=== PATIENT | male | born 1960 | race Hispanic/Latino ===

== ENCOUNTER 2019-08-27 23:27 | Inpatient (IN) | payer SELFPAY ==
[2019-08-28 00:04] VITALS: BMI 27.4
[2019-08-28] MEDS ORDERED: Ondansetron PF 4 MG/2 ML Vial IVP PRN (00:37)
[2019-08-28] MEDS ORDERED: hydrALAZINE 20 MG/ML VIAL SLOW IVP PRN (00:37)
[2019-08-28] MEDS ORDERED: Promethazine HCl 12.5 MG in Sodium Chloride 0.9% 50 ML IVPB PRN (00:37)
[2019-08-28] MEDS ORDERED: Morphine 2 MG/ML SYRINGE SLOW IVP PRN ×2 (00:37→01:00)
[2019-08-28] MEDS ORDERED: cloNIDine 0.1 MG TAB PO PRN (00:37)
[2019-08-28] MEDS ORDERED: Bisacodyl 10 MG SUPP PR PRN (01:03)
[2019-08-28] MEDS ORDERED: Bisacodyl 5 MG TAB PO PRN (01:03)
[2019-08-28] MEDS ORDERED: Dextrose 5% in Water 1,000 ML IV PRN (01:03)
[2019-08-28] MEDS ORDERED: HYDROcodone/Acetaminophen 5/325 mg Tablet PO PRN (01:03)
[2019-08-28] MEDS ORDERED: Dextrose 50% Abboject 50 ML SYRINGE SLOW IVP PRN (01:03)
--- NOTE | 2019-08-28 01:06 | PDOC.HHP ---
Hospitalist HPI - History of Present Illness Chest pain History of Present Illness: Patient is a 58 year old male with PMH HTN, T2DM who presents as [place] transfer for chest pain, crushing substernal worse with exertion associated wth shortness of breath, began this AM and patinet tried to manage at home but could not and presented for evaluation. He had a similar pain about 10 days ago that did resolve on its own. In [place] ED, CTA without evidence of PE, EKG reported with nonsspecitic T wave changes. Vs wnl. got ASA, nitropaste, transferred to [facility]. Patient has history of DM on 95 units of insulin in AM, reports suboptimal control at home. takes losartan for BP. ED Course: VS 22:26 bp 130/82, pulse 75, rr 18, o2 99 RA, t 98.6 home meds insulin levemir 95u sq daily losartan 100mg po daily Hospitalist ROS - Review of Systems Constitutional: denies: fever, chills Eyes: denies: pain, vision change ENT: denies: mouth swelling, throat pain Respiratory: reports: shortness of breath. denies: cough Cardiovascular: reports: chest pain, light headedness. denies: palpitations Gastrointestinal: denies: nausea, vomiting Genitourinary: denies: dysuria, frequency Musculoskeletal: reports: arm pain (chest pain radiates to arm). denies: neck pain, shoulder pain Skin: denies: rash, lesions Neurological: denies: weakness, numbness All other systems reviewed; all pertinent +/- noted in HPI/Subj Hospitalist History - Past Medical History Other Medical History: htn, dm - Past Surgical History Other Surgical History: appendectomy - Family History Other Family History: dm in mother - Social History Smoking Status: Never smoker Alcohol: reports: Occassional Drugs: reports: none - Exam General Appearance: NAD, awake alert Eye: PERRL, anicteric sclera ENT: normocephalic atraumatic, no oropharyngeal lesions, moist mucosa Neck: supple, symmetric, no JVD, no thyromegaly, no lymphadenopathy, no carotid bruit Heart: RRR, no murmur, no gallops, no rubs, normal peripheral pulses Respiratory: CTAB, no wheezes, no rales, no ronchi, normal chest expansion, no tachypnea, normal percussion Gastrointestinal: soft, non-tender, non-distended, normal bowel sounds, no palpable masses, no hepatomegaly, no splenomegaly, no bruit Extremities: no cyanosis, no clubbing, no edema Skin: normal turgor, no lesions, no rashes Neurological: cranial nerve grossly intact, normal sensation to touch, no weakness, no focal deficits, no new deficit Musculoskeletal: normal tone, normal strength, no muscle wasting Psychiatric: normal affect, normal behavior, A&O x 3 Hospitalist Results - Labs Lab results: reviewed ED docs from [place] repeat labs pending repeat TnI 1.128 Hospitalist H&P A/P - Plan Plan: Patient is a 58 year old male with PMH HTN, T2DM who presents as [place] transfer for chest pain. # NSTEMI - admit to telemetry, consult transportation broker cardiology - continue lovenox, asa, add statin, beta shaista - trend troponin - repeat EKG # DM - NPO in case procedure needed - cover with sSI # HTN - PRNs in chart, continue nitropaste
[2019-08-28 01:15] LABS: Troponin I 1.128 ng/mL (< 0.028)
[2019-08-28] MEDS ORDERED: Enoxaparin Sodium 80 MG/0.8 ML SYRINGE SC SCH ×2 (01:30→09:00)
[2019-08-28] MEDS: Nitroglycerin 2% Ointment 1 INCH/1 GM Packet TOP SCH ×3 (01:32→18:48)
[2019-08-28 04:55] LABS: #Basophils 0.1 thou/uL (0.0-0.2); #Eosinphils 0.1 thou/uL (0.0-0.7); #Lymphocytes 0.9 thou/uL (1.20-3.40); #Neutrophils 4.9 thou/uL (1.40-6.50); %Basophils 0.9 % (0.0-1.0); %Eosinophils 1.1 % (0.0-10.0); %Lymphocytes 12.9 % (21.0-51.0); %Monocytes 14.8 % (0.0-10.0); %Neutrophils 70.3 % (42.0-75.0); Hemoglobin 15.1 g/dL (14.0-18.0); Mean Corpuscular HGB CONC 34.3 g/dL (32.0-36.0); Mean Corpuscular Hemoglobin 31.8 pg (27.0-31.0); Mean Corpuscular Volume 92.6 fL (78.0-98.0); Mean Platelet Volume 6.8 fL (7.4-10.4); Platelet Count 278 thou/uL (130-400); RBC Distribution Width 11.4 % (11.5-14.5); Red Blood Cell (RBC) Count 4.77 mill/uL (4.70-6.10); White Blood Cell (WBC) Count 6.9 thou/uL (4.8-10.8)
[2019-08-28] MEDS: Acetaminophen 325 MG TAB PO PRN ×2 (05:00→10:14)
[2019-08-28 05:18] LABS: Anion Gap 12 mmol/L (10-20); BUN (Urea Nitrogen) 8 mg/dL (8.4-25.7); Calc. Creatinine Clearance 116 mL/min (70-130); Calcium 7.9 mg/dL (7.8-10.44); Carbon Dioxide 21 mmol/L (22-29); Chloride 105 mmol/L (98-107); Estimated GFR-MDRD Greater than 90; Glucose 168 mg/dL (70-105); Magnesium 1.8 mg/dL (1.6-2.6); Potassium 3.6 mmol/L (3.5-5.1); Sodium 134 mmol/L (136-145)
[2019-08-28 07:37] LABS: Troponin I 2.718 ng/mL (< 0.028)
[2019-08-28] MEDS: Losartan 25 MG TAB PO SCH (08:35)
[2019-08-28] MEDS: Aspirin 81 mg Enteric Coated Tablet PO SCH (08:35)
[2019-08-28] MEDS: Metoprolol Tartrate 25 MG TAB PO SCH ×2 (08:36→20:50)
[2019-08-28] MEDS: Polyethylene Glycol 3350 17 GM Packet PO SCH (08:37)
[2019-08-28] MEDS ORDERED: Enoxaparin Sodium 40 MG/0.4 ML SYRINGE SC SCH (09:00)
[2019-08-28] MEDS ORDERED: Iopamidol 370 76% 100 ML VIAL ONE (09:46)
[2019-08-28] MEDS ORDERED: Verapamil 5 MG/2 ML VIAL ONE (12:39)
[2019-08-28] MEDS ORDERED: Nitroglycerin 100MG/250ML BOT 250 ML ONE (12:39)
[2019-08-28] MEDS ORDERED: Heparin 10,000 UNITS/1 ML VIAL ONE (12:39)
[2019-08-28] MEDS ORDERED: Heparin (Artline) 1,000 ML ONE (12:39)
[2019-08-28] MEDS ORDERED: Lidocaine 1% (PF) 30 ML VIAL ONE (12:43)
[2019-08-28] MEDS ORDERED: Communication Order-Pharmacy FS SCH (13:00)
[2019-08-28 13:36] LABS: Troponin I 9.737 ng/mL (< 0.028)
--- NOTE | 2019-08-28 13:41 | CON ---
DATE OF CONSULTATION: 08/28/2019 INDICATION FOR CONSULTATION: A 58-year-old patient with a history of chest pain, presented to the [facility] [facility], was then transferred here for further evaluation. Cardiac enzymes are positive for a non-ST segment elevation myocardial infarction. He actually has had increase in the cardiac enzymes that continued to creep upwards. He continues to have some discomfort in his chest and his left arm. HISTORY OF PRESENT ILLNESS: This gentleman is on August 18, he complained of some left arm numbness and some shortness of breath. He did not present to the emergency room or seek medical care at that time, then again it had waxed and waned and then on August 27, which was yesterday, he notes again the left arm pain, shortness of breath, and the discomfort woke him from sleep. He had the pain on and off and also had some nausea and his fiancee or girlfriend make him go to the emergency room. He is still having some discomfort. He smoked in the past about a pack a week for about 15 to 20 years, but stopped about 10 to 12 years ago. He also has hypercholesterolemia. He has been on medications. This was stopped after his cholesterol level reportedly returned to normal. He also has a history of insulin-dependent diabetes. He has been diabetic for about 10 years. He has no early family history of heart disease. At this time, his troponin I is 2.71, earlier around little after midnight was 1.12. Since the patient continues to have pain and his EKG also showed evidence of probably an anterior myocardial infarction, which is already queued out. He does have some biphasic T-waves in V2, whereas a slight elevation in V3, when his first EKG did not show the biphasic T-waves, but this clearly could be just evolutionary changes due to a previous myocardial infarction, which may have occurred on August 18. He also has small Q-waves in III and aVF, which may indicate an old inferior myocardial infarction. PAST MEDICAL HISTORY: Significant for head and back injury after he was hit by a scaffolding plank. He has history of diabetes and hypertension. FAMILY HISTORY: No family history of heart disease. SOCIAL HISTORY: He has smoked in the past, but stopped many years ago. He has only occasional alcohol use. He is unemployed at this time. REVIEW OF SYSTEMS: A 12-point review of systems unremarkable except what is noted in the history of present illness. He does wear reading glasses, otherwise is unremarkable. ALLERGIES: NONE. MEDICATIONS: His medications at this time include; 1. Aspirin 81 mg a day. 2. Lipitor 40 mg a day. 3. Lovenox 80 mg subcu. I believe his last dose was given around midnight or 9 a.m. today. 4. He is on Cozaar 100 mg a day. 5. Metoprolol 25 mg b.i.d. 6. Nitroglycerin paste was placed half an inch. 7. He is on Protonix 40 mg a day. 8. Polyethylene glycol 17 g p.o. daily. 9. Other p.r.n. medications. PHYSICAL EXAMINATION: GENERAL: Reveals a well-developed, well-nourished gentleman. He is in no acute distress. He is complaining of a headache, most likely associated with that nitroglycerin. VITAL SIGNS: His temperature is 99.8, earlier today around 7 o'clock this morning was 98.6. Respiratory rate is 16 to 20, heart rate is in the 70s and shows a sinus rhythm. Blood pressure is 119/78 and O2 saturation is 95%. HEENT: Shows the head to be normocephalic and atraumatic. Carotid pulses are present. There were no bruits. CHEST: Clear to auscultation without rales, rhonchi, or wheezing. CARDIOVASCULAR: Reveals a regular rate and rhythm. He has a normal S1 and S2. I cannot hear any significant S3 or S4. There were no significant murmurs, heaves, thrills, bruits, or rubs. ABDOMEN: Soft and nontender. Positive bowel sounds are present. EXTREMITIES: Show no clubbing, cyanosis, or edema. NEUROLOGIC: The patient appears to be intact. He seems to have normal strength and normal tone. Otherwise, there were no significant abnormalities noted. LABORATORY DATA: Shows the troponin I as noted above at 4 a.m. this morning was 2.78. I do not see a repeat one since that time, but earlier the night around midnight was 1.12. Blood sugar is 240, sodium was 134, potassium was 3.6, BUN was 8 with a creatinine 0.76. WBC was 6.9 with a hemoglobin 15.1 and platelet count of 278,000. IMPRESSION AND PLAN: 1. What appears to be a non-ST segment elevation myocardial infarction, but in the gentleman, who may well have had a myocardial infarction on August 18, but continued to have some chest discomfort. We will need to evaluate the patient to ensure that there is no indication that he has any ongoing stenosis that may cause further injury to the myocardium. I have explained the procedure and the risks to him to include bleeding, infection, possible myocardial infarction, CVA, renal insufficiency, allergic contrast reaction, and even the possibility of . He agrees to proceed. We will plan for cardiac catheterization on urgent basis. 2. Diabetes. This will be dealt with by the primary care service. The blood sugar is slightly elevated still at 240. He has not eaten lunch. 3. Hypertension. This appears to be relatively stable at this time. 4. History in the past of hypercholesterolemia. We will need to re-evaluate this to determine whether or not he has hypercholesterolemia, but most likely since he is a diabetic, we would desire to have an LDL level of less than 70. We will plan for cardiac catheterization as soon as possible. Job ID: [id number]
[2019-08-28] MEDS ORDERED: Morphine 2 MG/ML SYRINGE ONE ×2 (14:31→14:46)
[2019-08-28] MEDS ORDERED: TICAGRELOR 90 MG TABLET ONE (15:04)
--- NOTE | 2019-08-28 17:16 | PDOC.HOSPP ---
- Subjective Encounter Date: 08/28/19 Encounter Time: 08:45 Subjective: pt up in bed is hungry. He does have mild chest pain. - Objective Vital Signs & Weight: Vital Signs (12 hours) Temp Pulse Resp BP Pulse Ox 08/28/19 16:00 98.3 F 78 18 132/81 98 08/28/19 10:54 99.8 F H 75 16 119/78 95 08/28/19 07:40 95 08/28/19 07:15 98.6 F 74 20 124/77 95 Weight Weight 170 lb I&O: 08/27/19 08/28/19 08/29/19 06:59 06:59 06:59 Intake Total 0 Balance 0 Result Diagrams: 08/28/19 04:39 08/28/19 04:39 Additional Labs: Accuchecks 08/28/19 08/28/19 08/28/19 16:19 10:17 00:14 POC Glucose 187 H 240 H 172 H Hospitalist ROS - Review of Systems Cardiovascular: reports: chest pain Gastrointestinal: denies: nausea, vomiting, abdominal pain, diarrhea, constipation, melena, hematochezia, other Genitourinary: denies: dysuria, frequency, incontinence, hematuria, retention, other Musculoskeletal: denies: neck pain, shoulder pain, arm pain, back pain, hand pain, leg pain, foot pain, other - Medication Medications: Active Medications Generic Name Dose Route Start Last Admin Trade Name Freq PRN Reason Stop Dose Admin Acetaminophen 650 mg 08/28/19 01:03 08/28/19 10:14 Tylenol PO 650 mg Q4H PRN Administration Headache/Fever/Mild Pain (1-3) Aspirin 81 mg 08/28/19 09:00 08/28/19 08:35 Ecotrin PO 81 mg DAILY ADAN Administration Losartan Potassium 100 mg 08/28/19 09:00 08/28/19 08:35 Cozaar PO 100 mg DAILY ADAN Administration Metoprolol Tartrate 25 mg 08/28/19 09:00 08/28/19 08:36 Lopressor PO 25 mg BID ADAN Administration Morphine Sulfate 2 mg 08/28/19 01:00 08/28/19 01:33 Morphine SLOW IVP 2 mg Q2H PRN Administration Chest Pain Nitroglycerin 0.5 inch 08/28/19 02:00 01/17/20 10:14 Nitro-Bid 2% Ointment TOP 0.5 inch 0200,1000,1800 ADAN Administration Pantoprazole Sodium 40 mg 08/28/19 09:00 08/28/19 08:36 Protonix PO 40 mg DAILY ADAN Administration Polyethylene Glycol 17 gm 08/28/19 09:00 08/28/19 08:37 Miralax PO Not Given DAILY ADAN - Exam Neck: negative: supple, symmetric, no JVD, no thyromegaly, no lymphadenopathy, no carotid bruit, JVD Heart: negative: RRR, no murmur, no gallops, no rubs, normal peripheral pulses, irregular, diminshed peripheral pulses, murmur present, II/IV, III/IV Respiratory: negative: CTAB, no wheezes, no rales, no ronchi, normal chest expansion, no tachypnea, normal percussion, rales, rhonchi, tachypneic, wheezes Gastrointestinal: negative: soft, non-tender, non-distended, normal bowel sounds , no palpable masses, no hepatomegaly, no splenomegaly, no bruit, no guarding, no rigidity, tender to palpation, distended, diminished bowl sounds, voluntary guarding Hosp A/P (1) NSTEMI (non-ST elevated myocardial infarction) Code(s): I21.4 - NON-ST ELEVATION (NSTEMI) MYOCARDIAL INFARCTION Status: Acute (2) HTN (hypertension) Code(s): I10 - ESSENTIAL (PRIMARY) HYPERTENSION Status: Acute (3) CAD (coronary artery disease) Code(s): I25.10 - ATHSCL HEART DISEASE OF [place] CORONARY ARTERY W/O ANG PCTRS Status: Acute - Plan pt is on asa/stain and AC. Awaiting cardiac cath. will monitor.
[2019-08-28] MEDS: HumaLOG 300 UNITS/3 ML VIAL SC PRN (17:54)
[2019-08-28] MEDS: Atorvastatin Calcium 40 MG TAB PO SCH (20:49)
[2019-08-28] MEDS: TICAGRELOR 90 MG TABLET PO SCH (20:50)
[2019-08-29] MEDS: Nitroglycerin 2% Ointment 1 INCH/1 GM Packet TOP SCH ×3 (02:05→17:05)
[2019-08-29 04:41] LABS: #Lymphocytes 0.7 thou/uL (1.20-3.40); #Monocytes 0.8 thou/uL (0.11-0.59); #Neutrophils 4.8 thou/uL (1.40-6.50); %Basophils 0.3 % (0.0-1.0); %Eosinophils 0.5 % (0.0-10.0); %Lymphocytes 10.8 % (21.0-51.0); %Monocytes 12.3 % (0.0-10.0); %Neutrophils 76.2 % (42.0-75.0); Hemoglobin 16.1 g/dL (14.0-18.0); Mean Corpuscular HGB CONC 34.1 g/dL (32.0-36.0); Mean Corpuscular Hemoglobin 31.4 pg (27.0-31.0); Mean Corpuscular Volume 91.9 fL (78.0-98.0); Mean Platelet Volume 6.8 fL (7.4-10.4); Platelet Count 280 thou/uL (130-400); RBC Distribution Width 11.5 % (11.5-14.5); Red Blood Cell (RBC) Count 5.13 mill/uL (4.70-6.10); White Blood Cell (WBC) Count 6.3 thou/uL (4.8-10.8)
[2019-08-29 04:54] LABS: ALT (SGPT) 19 U/L (8-55); AST (SGOT) 43 U/L (5-34); Albumin 3.8 g/dL (3.5-5.0); Alkaline Phosphatase 78 U/L (40-110); Anion Gap 13 mmol/L (10-20); BUN (Urea Nitrogen) 9 mg/dL (8.4-25.7); Bilirubin, Total 1.5 mg/dL (0.2-1.2); Calc. Creatinine Clearance 93 mL/min (70-130); Calcium 8.6 mg/dL (7.8-10.44); Carbon Dioxide 22 mmol/L (22-29); Chloride 102 mmol/L (98-107); Estimated GFR-MDRD 82; Glucose 253 mg/dL (70-105); Magnesium 1.9 mg/dL (1.6-2.6); Potassium 4.5 mmol/L (3.5-5.1); Protein, Total 6.8 g/dL (6.0-8.3); Sodium 132 mmol/L (136-145)
[2019-08-29 05:05] LABS: CKMB 21.2 ng/mL (0-6.6)
[2019-08-29] MEDS: Aspirin 81 mg Enteric Coated Tablet PO SCH (08:25)
[2019-08-29] MEDS: Metoprolol Tartrate 25 MG TAB PO SCH ×2 (08:26→21:50)
[2019-08-29] MEDS: TICAGRELOR 90 MG TABLET PO SCH ×2 (08:26→21:51)
[2019-08-29] MEDS: Polyethylene Glycol 3350 17 GM Packet PO SCH (08:26)
[2019-08-29] MEDS: Losartan 25 MG TAB PO SCH (08:26)
[2019-08-29 09:43] LABS: Troponin I 7.169 ng/mL (< 0.028)
[2019-08-29] MEDS: HumaLOG 300 UNITS/3 ML VIAL SC PRN ×2 (12:00→16:52)
[2019-08-29] MEDS: Acetaminophen 325 MG TAB PO PRN (12:10)
--- NOTE | 2019-08-29 14:31 | PDOC.HOSPP ---
- Subjective Encounter Date: 08/29/19 Encounter Time: 10:15 Subjective: pt up in bed complains of sob. - Objective Vital Signs & Weight: Vital Signs (12 hours) Temp Pulse Pulse Pulse Resp BP BP 08/29/19 12:28 80 73 131/80 129/76 08/29/19 07:00 98.2 F 85 16 08/29/19 03:31 98.3 F 76 18 BP Pulse Ox Pulse Ox Pulse Ox 08/29/19 12:28 97 97 08/29/19 07:00 113/72 96 08/29/19 03:31 127/78 96 Weight Weight 174 lb 6.4 oz I&O: 08/28/19 08/29/19 08/30/19 06:59 06:59 06:59 Intake Total 0 920 Output Total 550 Balance 0 370 Result Diagrams: 08/29/19 04:15 08/29/19 04:15 Additional Labs: Accuchecks 08/29/19 08/29/19 08/28/19 11:04 05:58 20:01 POC Glucose 333 H 237 H 258 H 08/28/19 16:19 POC Glucose 187 H Hospitalist ROS - Review of Systems Respiratory: reports: shortness of breath Cardiovascular: denies: chest pain, palpitations, orthopnea, paroxysmal noc. dyspnea, edema, light headedness, other Gastrointestinal: denies: nausea, vomiting, abdominal pain, diarrhea, constipation, melena, hematochezia, other - Medication Medications: Active Medications Generic Name Dose Route Start Last Admin Trade Name Freq PRN Reason Stop Dose Admin Acetaminophen 650 mg 08/28/19 01:03 08/29/19 12:10 Tylenol PO 650 mg Q4H PRN Administration Headache/Fever/Mild Pain (1-3) Hydrocodone Bitart/Acetaminophen 1 tab 08/28/19 01:03 08/28/19 18:02 [place] 5/325 PO 1 tab Q4H PRN Administration Moderate Pain (4-6) Aspirin 81 mg 08/28/19 09:00 08/29/19 08:25 Ecotrin PO 81 mg DAILY ADAN Administration Atorvastatin Calcium 40 mg 08/28/19 21:00 08/28/19 20:49 Lipitor PO 40 mg HS ADAN Administration Insulin Human Lispro 0 units 08/28/19 01:03 08/29/19 12:00 Humalog SC 8 unit .MODERATE SLIDING SC PRN Administration Moderate Correctional Scale Losartan Potassium 100 mg 08/28/19 09:00 08/29/19 08:26 Cozaar PO 100 mg DAILY ADAN Administration Metoprolol Tartrate 25 mg 08/28/19 09:00 08/29/19 08:26 Lopressor PO 25 mg BID ADAN Administration Morphine Sulfate 2 mg 08/28/19 01:00 08/28/19 01:33 Morphine SLOW IVP 2 mg Q2H PRN Administration Chest Pain Nitroglycerin 0.5 inch 08/28/19 02:00 08/29/19 09:11 Nitro-Bid 2% Ointment TOP Not Given 0200,1000,1800 [facility] Ondansetron HCl 4 mg 08/28/19 00:37 08/28/19 18:03 Zofran IVP 4 mg Q6H PRN Administration Nausea/Vomiting use 1st Pantoprazole Sodium 40 mg 08/28/19 09:00 08/29/19 08:26 Protonix PO 40 mg DAILY ADAN Administration Polyethylene Glycol 17 gm 08/28/19 09:00 08/29/19 08:26 Miralax PO 17 gm DAILY ADAN Administration Ticagrelor 90 mg 08/28/19 21:00 08/29/19 08:26 Brilinta PO 90 mg BID ADAN Administration - Exam Neck: negative: supple, symmetric, no JVD, no thyromegaly, no lymphadenopathy, no carotid bruit, JVD Heart: negative: RRR, no murmur, no gallops, no rubs, normal peripheral pulses, irregular, diminshed peripheral pulses, murmur present, II/IV, III/IV Respiratory: negative: CTAB, no wheezes, no rales, no ronchi, normal chest expansion, no tachypnea, normal percussion, rales, rhonchi, tachypneic, wheezes Hosp A/P (1) NSTEMI (non-ST elevated myocardial infarction) Code(s): I21.4 - NON-ST ELEVATION (NSTEMI) MYOCARDIAL INFARCTION Status: Acute (2) HTN (hypertension) Code(s): I10 - ESSENTIAL (PRIMARY) HYPERTENSION Status: Acute (3) CAD (coronary artery disease) Code(s): I25.10 - ATHSCL HEART DISEASE OF [place] CORONARY ARTERY W/O ANG PCTRS Status: Acute (4) Diabetes Code(s): E11.9 - TYPE 2 DIABETES MELLITUS WITHOUT COMPLICATIONS Status: Acute - Plan pt is on asa/stain and AC. Awaiting cardiac cath. will monitor. 08/29 pt very sob, his lungs are clear on exam. will get a cxr.
[2019-08-29] MEDS ORDERED: Insulin Glargine 20 UNITS in Pre-Filled Syringe 1 EACH SC SCH (14:45)
--- NOTE | 2019-08-29 14:48 | PDOC.CPN ---
- Subjective Date: 08/29/19 Time: 14:48 Interval history: The pt seen and examined. No overnight events. No cardiac complaints, except HERRERA with walking and feeling of depression; - Objective Allergies/Adverse Reactions: Allergies Allergy/AdvReac Type Severity Reaction Status Date / Time cephalexin [From Keflex] Allergy Intermediate Rash Verified 08/28/19 00:08 Visit Medications: Current Medications Acetaminophen (Tylenol) 650 mg PO Q4H PRN PRN Reason: Headache/Fever/Mild Pain (1-3) Last Admin: 08/29/19 12:10 Dose: 650 mg Hydrocodone Bitart/Acetaminophen ([place] 5/325) 1 tab PO Q4H PRN PRN Reason: Moderate Pain (4-6) Last Admin: 08/28/19 18:02 Dose: 1 tab Aspirin (Ecotrin) 81 mg PO DAILY [facility] Last Admin: 08/29/19 08:25 Dose: 81 mg Atorvastatin Calcium (Lipitor) 40 mg PO HS [facility] Last Admin: 08/28/19 20:49 Dose: 40 mg Bisacodyl (Dulcolax) 10 mg PO DAILYPRN PRN PRN Reason: Constipation Bisacodyl (Dulcolax) 10 mg ME DAILYPRN PRN PRN Reason: Constipation Clonidine (Catapres) 0.1 mg PO Q4H PRN PRN Reason: SBP > 160 use second Dextrose/Water (Dextrose 50%) 25 gm SLOW IVP PRN PRN PRN Reason: Hypoglycemia Glucagon (Glucagon) 1 mg IM PRN PRN PRN Reason: Hypoglycemia Hydralazine HCl (Apresoline) 10 mg SLOW IVP Q6H PRN PRN Reason: SBP GREATER THAN 160 Promethazine HCl 12.5 mg/ (Sodium Chloride) 50.5 mls @ 202 mls/hr IVPB Q6H PRN PRN Reason: Nausea/vomiting use second Dextrose/Water (D5w) 1,000 mls @ 0 mls/hr IV .Q0M PRN PRN Reason: Hypoglycemia Insulin Glargine 20 units/ (Miscellaneous Medication) 0.2 mls @ 0 mls/hr SC QAM [facility] Insulin Glargine 20 units/ (Miscellaneous Medication) 0.2 mls @ 0 mls/hr SC NOW [facility] Stop: 08/29/19 16:45 Insulin Human Lispro (Humalog) 0 units SC .MODERATE SLIDING SC PRN PRN Reason: Moderate Correctional Scale Last Admin: 08/29/19 12:00 Dose: 8 unit Losartan Potassium (Cozaar) 100 mg PO DAILY [facility] Last Admin: 08/29/19 08:26 Dose: 100 mg Metoprolol Tartrate (Lopressor) 25 mg PO BID [facility] Last Admin: 08/29/19 08:26 Dose: 25 mg Morphine Sulfate (Morphine) 2 mg SLOW IVP Q2H PRN PRN Reason: Chest Pain Last Admin: 08/28/19 01:33 Dose: 2 mg Nitroglycerin (Nitro-Bid 2% Ointment) 0.5 inch TOP 0200,1000,1800 [facility] Last Admin: 08/29/19 09:11 Dose: Not Given Ondansetron HCl (Zofran) 4 mg IVP Q6H PRN PRN Reason: Nausea/Vomiting use 1st Last Admin: 08/28/19 18:03 Dose: 4 mg Pantoprazole Sodium (Protonix) 40 mg PO DAILY [facility] Last Admin: 08/29/19 08:26 Dose: 40 mg Polyethylene Glycol (Miralax) 17 gm PO DAILY [facility] Last Admin: 08/29/19 08:26 Dose: 17 gm Ticagrelor (Brilinta) 90 mg PO BID [facility] Last Admin: 08/29/19 08:26 Dose: 90 mg Vital Signs & Weight: Vital Signs Temp Pulse Pulse Pulse Resp BP BP 08/29/19 12:28 80 73 131/80 129/76 08/29/19 07:00 98.2 F 85 16 08/29/19 03:31 98.3 F 76 18 BP Pulse Ox Pulse Ox Pulse Ox 08/29/19 12:28 97 97 08/29/19 07:00 113/72 96 08/29/19 03:31 127/78 96 Weight 174 lb 6.4 oz - Physical Exam General: alert & oriented x3 Neck: supple neck Cardiac: regular rate and rhythm, S1/S2 Lungs: clear to auscultation, decreased breath sounds Neuro: cranial nerve 2-12 intact Extremities: no edema Skin: clear Musculoskeletal: normal range of motion - Labs Result Diagrams: 08/29/19 04:15 08/29/19 04:15 Troponin/CKMB CK-MB (CK-2) 21.2 ng/mL (0-6.6) H* 08/29/19 04:15 Troponin I 7.169 ng/mL (< 0.028) H* 08/29/19 09:04 - Telemetry Sinus rhythms and dysrhythmias: sinus rhythm - Assessment/Plan Assessment/Plan: 1. CAD with BMS in LAD on 08/28/2019 - complaining of SOB with walking; no SOB with talking; feeling of depress; on ASA, Brilinta, Metoprolol, and statin; CXR was ordered by PCP; STAT 12 lead ECG now 2. HTN - stable 3. HLD - on Statin 4. Insulin dependent DM - managed by PCP BRANDON reviewed * s/p LHC on 08/28/2019 with BMS in mid and distal LAD; 75% stenosis in RCA Pt. seen and eval. by me. I agree with the A/P by the PLATFORM MILL SUPERVISOR.Chest clear. RRR. He had some chest discomfort earlier but not like what he had when he had the chest pain earlier. feels better. 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 He has some damage to the myocardium. Hopefully this will be minimal. Continue present medications. he should be able to be d/c'd tomorrow. He will likely need assistance to get his medications.sussy
--- NOTE | 2019-08-29 15:46 | RAD ---
EXAM: Portable chest PROVIDED CLINICAL HISTORY: Shortness of breath COMPARISON: 08/27/2019 FINDINGS: Cardiac and mediastinal silhouette is within normal limits. No focal consolidation, pleural fluid or pneumothorax evident. IMPRESSION: No evidence for an acute cardiopulmonary process.
[2019-08-29] MEDS: Atorvastatin Calcium 40 MG TAB PO SCH (21:50)
[2019-08-29] MEDS: Diabetic Tussin 200 MG/10 ML UDCUP PO PRN (21:50)
[2019-08-30] MEDS: Nitroglycerin 2% Ointment 1 INCH/1 GM Packet TOP SCH ×2 (02:10→09:57)
[2019-08-30 04:46] LABS: #Eosinphils 0.1 thou/uL (0.0-0.7); #Lymphocytes 0.9 thou/uL (1.20-3.40); #Monocytes 0.6 thou/uL (0.11-0.59); #Neutrophils 3.9 thou/uL (1.40-6.50); %Basophils 0.3 % (0.0-1.0); %Lymphocytes 15.9 % (21.0-51.0); %Neutrophils 71.8 % (42.0-75.0); Hemoglobin 16.7 g/dL (14.0-18.0); Mean Corpuscular HGB CONC 35.2 g/dL (32.0-36.0); Mean Corpuscular Hemoglobin 32.8 pg (27.0-31.0); Mean Corpuscular Volume 93.1 fL (78.0-98.0); Mean Platelet Volume 6.7 fL (7.4-10.4); Platelet Count 261 thou/uL (130-400); RBC Distribution Width 11.4 % (11.5-14.5); Red Blood Cell (RBC) Count 5.09 mill/uL (4.70-6.10); White Blood Cell (WBC) Count 5.4 thou/uL (4.8-10.8)
[2019-08-30 05:15] LABS: Anion Gap 12 mmol/L (10-20); BUN (Urea Nitrogen) 12 mg/dL (8.4-25.7); Calc. Creatinine Clearance 91 mL/min (70-130); Calcium 8.7 mg/dL (7.8-10.44); Carbon Dioxide 26 mmol/L (22-29); Chloride 100 mmol/L (98-107); Estimated GFR-MDRD 78; Glucose 221 mg/dL (70-105); Potassium 4.3 mmol/L (3.5-5.1); Sodium 134 mmol/L (136-145)
[2019-08-30] MEDS: HumaLOG 300 UNITS/3 ML VIAL SC PRN (08:19)
[2019-08-30] MEDS: Losartan 25 MG TAB PO SCH (08:25)
[2019-08-30] MEDS: TICAGRELOR 90 MG TABLET PO SCH (08:25)
[2019-08-30] MEDS: Metoprolol Tartrate 25 MG TAB PO SCH (08:26)
[2019-08-30] MEDS: Aspirin 81 mg Enteric Coated Tablet PO SCH (08:26)
[2019-08-30] MEDS: Polyethylene Glycol 3350 17 GM Packet PO SCH (08:26)
[2019-08-30] MEDS ORDERED: Insulin Glargine 20 UNITS in Pre-Filled Syringe 1 EACH SC SCH (09:00)
[2019-08-30] MEDS: Diabetic Tussin 200 MG/10 ML UDCUP PO PRN (10:02)
[2019-08-30 11:56] VITALS: TEMP 98.1
[2019-08-30] MEDS ORDERED: HumaLOG 300 UNITS/3 ML VIAL SC SCH (12:00)
[2019-08-30 14:25] VITALS: BP 126/78
--- NOTE | 2019-08-30 14:41 | PDOC.CPN ---
- Subjective Date: 08/30/19 Time: 14:46 Interval history: The pt seen and examined. No overnight events. No cardiac complaints. - Objective Allergies/Adverse Reactions: Allergies Allergy/AdvReac Type Severity Reaction Status Date / Time cephalexin [From Keflex] Allergy Intermediate Rash Verified 08/28/19 00:08 Vital Signs & Weight: Vital Signs Temp Pulse Pulse Pulse Resp BP BP 08/30/19 14:16 80 16 08/30/19 12:27 84 81 142/83 H 134/79 08/30/19 11:54 98.1 F 72 18 08/30/19 07:34 08/30/19 07:32 98.0 F 77 16 08/30/19 04:00 97.9 F 81 20 BP Pulse Ox Pulse Ox Pulse Ox 08/30/19 14:16 126/78 97 08/30/19 12:27 98 98 08/30/19 11:54 141/81 H 99 08/30/19 07:34 97 08/30/19 07:32 132/86 97 08/30/19 04:00 112/67 96 Weight 171 lb - Physical Exam General: alert & oriented x3 HEENT: mucus membranes moist Neck: supple neck Cardiac: regular rate and rhythm, S1/S2 Lungs: clear to auscultation Extremities: no edema - Labs Result Diagrams: 08/30/19 04:18 08/30/19 04:18 Troponin/CKMB CK-MB (CK-2) 21.2 ng/mL (0-6.6) H* 08/29/19 04:15 Troponin I 7.169 ng/mL (< 0.028) H* 08/29/19 09:04 - Telemetry Sinus rhythms and dysrhythmias: sinus rhythm - Assessment/Plan Assessment/Plan: 1. CAD with BMS in LAD on 08/28/2019 - no longer having SOB with exertion; on ASA, Brilinta, Metoprolol, and statin; Instructed cont. Brilinta for 30 days and change to Plavix; Brilinta sample given to the pt today; instructed to f/u with Dr Brady' office or PCP in 2 wk for hospital follow up. On colchicine for further [place] 2. HTN - stable 3. HLD - on Statin 4. Insulin dependent DM - managed by PCP MAR reviewed * s/p LHC on 08/28/2019 with BMS in mid and distal LAD; 75% stenosis in RCA * From Cardiac standpoint, the pt is stable to d/c home. Instructed cont. Brilinta for 30 days and change to Plavix 75mg 1 tab qd; Brilinta sample given to the pt today; instructed to f/u with Dr Brady' office or PCP in 2 wk for hospital follow up and medication management. Pt. seen and eval. by me. I agree with the A/P by the ACCESS ANALYST. sussy
--- NOTE | 2019-08-31 00:52 | DIS ---
DATE OF ADMISSION: 08/27/2019 DATE OF DISCHARGE: 08/30/2019 DISCHARGE DIAGNOSES: 1. Chest pain. 2. Coronary artery disease status post stents x2. 3. Diabetes. 4. Hypertension. HOSPITAL COURSE: The patient is a very pleasant 58-year-old male who initially presented to the hospital with complaints of chest pain. The patient at this time had elevated troponins and underwent a cardiac catheterization. He underwent a PCI bare metal stent to the mid LAD and distal LAD. His EF was 50% to 55% with apical akinetic. The patient at this improved through the hospital stay. However, his hospital stay was complicated with some shortness of breath the day after his cardiac cath. Chest x-ray did not show any acute pulmonary congestion. The patient was never hypoxic. On the day of the discharge, he had been ambulating without any difficulty. The patient's vitals on discharge were 98.1, 80, 16 respirations, 97% on room air, 126/78. GENERAL: He is awake, alert, and oriented x3, does not appear in distress. CV: S1, S2 present. No murmurs, rubs, or gallops. MEDICATIONS: 1. Aspirin 81 mg daily. 2. Atorvastatin 40 mg daily. 3. He was put on colchicine 0.6 daily. 4. Metoprolol 25 mg twice daily. 5. Brilinta 90 mg b.i.d. and samples were provided for this patient. 6. Levemir at 95 units daily. 7. Losartan 100 mg p.o. daily. 8. The patient will follow up with Cardiology and also his primary care. Job ID: [id number]
[2019-08-31] MEDS ORDERED: Insulin Glargine 40 UNITS in Pre-Filled Syringe 1 EACH SC SCH (09:00)
--- NOTE | 2019-09-01 10:28 | EKG ---
Test Reason : STAT Blood Pressure : / mmHG Vent. Rate : 079 BPM Atrial Rate : 079 BPM P-R Int : 142 ms QRS Dur : 094 ms QT Int : 350 ms P-R-T Axes : 018 013 055 degrees QTc Int : 401 ms Normal sinus rhythm Anteroseptal infarct , age undetermined Abnormal ECG No previous ECGs available Confirmed by RIVER GAMINO (2) on 09/01/2019 10:27:53 AM Referred By: Chapito MARROQUIN Confirmed By:RIVER GAMINO
--- NOTE | 2019-09-01 10:29 | EKG ---
Test Reason : Blood Pressure : / mmHG Vent. Rate : 074 BPM Atrial Rate : 074 BPM P-R Int : 154 ms QRS Dur : 080 ms QT Int : 382 ms P-R-T Axes : 016 023 069 degrees QTc Int : 424 ms Normal sinus rhythm Low voltage QRS Cannot rule out Anteroseptal infarct (cited on or before 28-AUG-2019) Abnormal ECG When compared with ECG of 28-AUG-2019 05:05, (Unconfirmed) No significant change was found Confirmed by RIVER GAMINO (2) on 09/01/2019 10:28:24 AM Referred By: HADLEY Confirmed By:RIVER GAMINO
--- NOTE | 2019-09-01 10:33 | EKG ---
Test Reason : A.M.. Blood Pressure : / mmHG Vent. Rate : 075 BPM Atrial Rate : 075 BPM P-R Int : 156 ms QRS Dur : 096 ms QT Int : 416 ms P-R-T Axes : 022 024 090 degrees QTc Int : 464 ms Normal sinus rhythm Anteroseptal infarct (cited on or before 28-AUG-2019) T wave abnormality, consider lateral ischemia Abnormal ECG When compared with ECG of 28-AUG-2019 08:12, (Unconfirmed) T wave inversion now evident in Anterior leads Confirmed by RIVER GAMINO (2) on 09/01/2019 10:32:57 AM Referred By: Rl SCHULZ Confirmed By:RIVER GAMINO
--- NOTE | 2019-09-01 10:36 | EKG ---
Test Reason : Blood Pressure : / mmHG Vent. Rate : 076 BPM Atrial Rate : 076 BPM P-R Int : 154 ms QRS Dur : 086 ms QT Int : 406 ms P-R-T Axes : 028 037 092 degrees QTc Int : 456 ms Normal sinus rhythm Anteroseptal infarct (cited on or before 28-AUG-2019) T wave abnormality, consider lateral ischemia Abnormal ECG When compared with ECG of 29-AUG-2019 05:20, (Unconfirmed) No significant change was found Confirmed by RIVER GAMINO (2) on 09/01/2019 10:36:01 AM Referred By: MARIANNE Confirmed By:RIVER GAMINO
== END 2019-08-30 14:23 | disposition home or self-care (01) | DRG 249 ==
LOC: INTOOBSV 23:27 → 2SW 23:27 → OBSVTOIN 08-28 09:30 → 2NO 08-28 15:13
PROVIDERS: ADMIT Family Medicine; ATTEND Internal Medicine
PROC: 02703DZ Dilation of Coronary Artery, One Artery with Intraluminal Device, Percutaneous Approach (ICD-10-PCS; principal; 2019-08-28)
PROC: 4A023N7 Measurement of Cardiac Sampling and Pressure, Left Heart, Percutaneous Approach (ICD-10-PCS; 2019-08-28)
PROC: B2151ZZ Fluoroscopy of Left Heart using Low Osmolar Contrast (ICD-10-PCS; 2019-08-28)
PROC: B2111ZZ Fluoroscopy of Multiple Coronary Arteries using Low Osmolar Contrast (ICD-10-PCS; 2019-08-28)
DX: I21.4 Non-ST elevation (NSTEMI) myocardial infarction (principal); I10 Essential (primary) hypertension; E11.9 Type 2 diabetes mellitus without complications; E78.00 Pure hypercholesterolemia, unspecified; I25.10 Atherosclerotic heart disease of native coronary artery without angina pectoris; E78.5 Hyperlipidemia, unspecified; Z90.49 Acquired absence of other specified parts of digestive tract; Z79.82 Long term (current) use of aspirin; Z79.899 Other long term (current) drug therapy; Z88.1 Allergy status to other antibiotic agents; Z79.4 Long term (current) use of insulin; Z87.891 Personal history of nicotine dependence
CPT/HCPCS: 36415; 36416; 71045; 80048; 80053; 82553; 83735; 84484; 85025; 85347; 92928; 93005; 93010; 93458; 93798; 94760; C1769; C1876; C1887; J1644; J1815; J2001; J2270; J2405; Q9967

== ENCOUNTER 2020-10-28 20:38 | Emergency (ER) | payer SELFPAY ==
[~2020-10-28 20:38] MED LIST: Iopamidol-370 76% 500 ML 1 ML ONE
[2020-10-28 21:04] LABS: Bacteria/HPF None Seen HPF (None Seen); Bilirubin Negative (Negative); Blood, Urine Negative (Negative); Clarity Turbid (Clear); Glucose, Urine (Dipstick) Normal (Negative); Ketone, Urine 40 mg/dL (Negative); Leukocyte Negative Leu/uL (Negative); Nitrite Negative (Negative); Protein, Urine (Dipstick) 30 mg/dL (Neg-Trace); RBC/HPF 0-3 HPF (0-3); Specific Gravity, Urine 1.027 (1.002-1.036); Squamous Epithelial None Seen HPF (0-3); Urobilinogen Normal mg/dL (Less than 2); WBC/HPF 0-3 HPF (0-3)
[2020-10-28 21:13] LABS: #Basophils 0.1 thou/uL (0.0-0.2); #Lymphocytes 0.7 thou/uL (1.20-3.40); #Monocytes 0.9 thou/uL (0.11-0.59); #Neutrophils 16.2 thou/uL (1.40-6.50); %Basophils 0.3 % (0.0-1.0); %Eosinophils 0.1 % (0.0-10.0); %Neutrophils 90.6 % (42.0-75.0); Hemoglobin 15.5 g/dL (14.0-18.0); Mean Corpuscular HGB CONC 33.9 g/dL (32.0-36.0); Mean Corpuscular Hemoglobin 31.8 pg (27.0-31.0); Mean Corpuscular Volume 93.9 fL (78.0-98.0); Mean Platelet Volume 6.5 fL (7.4-10.4); Platelet Count 345 thou/uL (130-400); RBC Distribution Width 11.7 % (11.5-14.5); Red Blood Cell (RBC) Count 4.87 mill/uL (4.70-6.10); White Blood Cell (WBC) Count 17.8 thou/uL (4.8-10.8)
[2020-10-28] MEDS ORDERED: Ondansetron PF 4 MG/2 ML Vial ONE (21:28)
[2020-10-28] MEDS ORDERED: Morphine 4 MG/ML VIAL ONE (21:28)
[2020-10-28 21:36] LABS: ALT (SGPT) 13 U/L (8-55); AST (SGOT) 11 U/L (5-34); Albumin 4.2 g/dL (3.5-5.0); Alkaline Phosphatase 78 U/L (40-110); Anion Gap 15 mmol/L (10-20); BUN (Urea Nitrogen) 12 mg/dL (8.4-25.7); Bilirubin, Total 2.2 mg/dL (0.2-1.2); Calc. Creatinine Clearance 0 mL/min (70-130); Calcium 9.4 mg/dL (7.8-10.44); Carbon Dioxide 21 mmol/L (22-29); Chloride 104 mmol/L (98-107); Globulin 2.9 g/dL (2.4-3.5); Glucose 122 mg/dL (70-105); Potassium 3.5 mmol/L (3.5-5.1); Protein, Total 7.1 g/dL (6.0-8.3); Sodium 136 mmol/L (136-145)
[2020-10-28] MEDS ORDERED: Ketorolac Tromethamine 30 MG/ML VIAL ONE (22:38)
== END 2020-10-28 23:22 | disposition home or self-care (01) ==
LOC: ERS 20:38
DX: N13.2 Hydronephrosis with renal and ureteral calculous obstruction (principal); E11.9 Type 2 diabetes mellitus without complications; E78.5 Hyperlipidemia, unspecified; I10 Essential (primary) hypertension; J45.909 Unspecified asthma, uncomplicated; Z79.4 Long term (current) use of insulin; Z79.899 Other long term (current) drug therapy
CPT/HCPCS: 36415; 74177; 80053; 81003; 81015; 83690; 85025; 96374; 96375; J1885; J2270; J2405; Q9967